=== PATIENT | male | born 1970 | race Caucasian/White ===

== ENCOUNTER 2016-07-30 13:10 | Emergency (ER) | payer MEDICAID, OTHER ==
[~2016-07-30] VITALS: Ht 160 cm; Wt 80.0 kg
[~2016-07-30 13:10] MED LIST: BUSP10TA3; METO25TA6
[2016-07-30 13:55] VITALS: BP 152/91
== END 2016-07-30 16:52 | disposition home or self-care (01) ==
LOC: ER 14:38
DX: J06.9 Acute upper respiratory infection, unspecified (principal); Z88.0 Allergy status to penicillin
CPT/HCPCS: 99283

== ENCOUNTER 2016-09-15 16:12 | Emergency (ER) | payer OTHER ==
[~2016-09-15] VITALS: Ht 167.6 cm; Wt 74.0 kg
[2016-09-15] MEDS ORDERED: KETOROLAC 60MG/2ML VIAL IM ONE (19:30)
[2016-09-15 19:36] VITALS: BP 122/82
== END 2016-09-15 20:01 | disposition home or self-care (01) ==
LOC: ER 18:25
DX: K05.00 Acute gingivitis, plaque induced (principal); Z88.0 Allergy status to penicillin; Z79.899 Other long term (current) drug therapy
CPT/HCPCS: 96372; 99283; J1885

== ENCOUNTER 2017-10-29 18:45 | Emergency (ER) | payer OTHER ==
[~2017-10-29] VITALS: Ht 167.6 cm; Wt 85.1 kg
[2017-10-30 01:06] LABS: CHLORIDE 107 mEq/L (98-107)
[2017-10-30 01:10] LABS: PARTIAL THROMBOPLASTIN TIME 27.3 sec (23.4-31.0); PROTHROMBIN TIME 10.5 sec (9.4-11.6)
[2017-10-30 01:43] LABS: HEMATOCRIT 40.6 % (42.0-52.0); HEMOGLOBIN 14.1 g/dL (14.0-18.0); MEAN CORPUSCULAR HEMOGLOBIN 29.8 pg (28.0-32.0); MEAN CORPUSCULAR VOLUME 85.9 fL (80.0-94.0); PLATELET 212 x1000/uL (130-400); RED BLOOD CELL COUNT 4.72 mill/uL (4.7-6.1); RED CELL DISTRIBUTION WIDTH 13.7 % (11.6-14.6)
[2017-10-30 03:00] VITALS: BP 110/72
== END 2017-10-30 03:35 | disposition home or self-care (01) ==
LOC: ER 21:08
DX: R04.0 Epistaxis (principal); Z88.0 Allergy status to penicillin
CPT/HCPCS: 36415; 80053; 85027; 85610; 85730; 86850; 86900; 99284

== ENCOUNTER 2021-02-02 17:50 | Emergency (ER) | payer MEDICAID, OTHER ==
[~2021-02-02] VITALS: Ht 170.2 cm; Wt 88.0 kg
[2021-02-02] MEDS ORDERED: IBUPROFEN 600MG TABLET PO ONE (21:15)
[2021-02-02] MEDS ORDERED: IBUP-2029 MT (21:46)
[2021-02-02 21:55] VITALS: BP 131/84
== END 2021-02-02 21:58 | disposition home or self-care (01) ==
LOC: ER 17:50
DX: M71.21 Synovial cyst of popliteal space [Baker], right knee (principal); Z88.0 Allergy status to penicillin; Z98.890 Other specified postprocedural states
CPT/HCPCS: 93970; 99284

== ENCOUNTER 2021-06-10 10:52 | Emergency (ER) | payer MEDICAID, OTHER ==
[~2021-06-10] VITALS: Ht 154.9 cm; Wt 91.0 kg
[~2021-06-10 10:52] MED LIST changes: -BUSP10TA3; +IBUP-2029 MT; -METO25TA6
[2021-06-10 10:54] VITALS: BP 171/96
[2021-06-10] MEDS ORDERED: LORAZEPAM 1MG TABLET PO ONE (11:15)
[2021-06-10 12:28] LABS: BASOPHILS % 0.3 % (0.0-2.0); EOSINOPHILS % 0.2 % (0.0-5.0); HEMATOCRIT. 46.2 % (42.0-52.0); HEMOGLOBIN. 15.8 g/dL (14.0-18.0); LYMPHOCYTES % 13.7 % (20.0-50.0); MEAN CORPUSCULAR HEMOGLOBIN 28.8 pg (28.0-32.0); MEAN CORPUSCULAR VOLUME 84.1 fL (80.0-94.0); MEAN PLATELET VOLUME 8.2 fl (7.4-10.4); MONOCYTES % 7.7 % (2.0-8.0); NEUTROPHILS % 78.1 % (40.0-76.0); PLATELET 301 x1000/uL (130-400); RED BLOOD CELL COUNT 5.49 mill/uL (4.7-6.1); RED CELL DISTRIBUTION WIDTH 13.2 % (11.6-14.6)
[2021-06-10 12:35] LABS: CHLORIDE 104 mEq/L (98-107)
[2021-06-10 12:40] LABS: ETHANOL BLOOD < 10 mg/dL
[2021-06-10 12:54] LABS: CLARITY URINE CLEAR (CLEAR); COLOR URINE YELLOW (YELLOW); KETONES URINE NEGATIVE (NEGATIVE); LEUKOCYTE ESTERASE URINE NEGATIVE (NEGATIVE); NITRITE URINE NEGATIVE (NEGATIVE); OCCULT BLOOD URINE NEGATIVE (NEGATIVE); PROTEIN URINE NEGATIVE (NEGATIVE); SPECIFIC GRAVITY URINE 1.004 (1.005-1.030); UROBILINOGEN URINE 0.2 E.U./dL (0.2-1.0)
[2021-06-10 13:01] LABS: *AMPHETAMINES SCREEN URINE PRESUMTIVE POSITIVE (NEGATIVE); *BARBITURATES SCREEN URINE NEGATIVE (NEGATIVE); *BENZODIAZEPINES SCREEN URINE NEGATIVE (NEGATIVE); *COCAINE SCREEN URINE NEGATIVE (NEGATIVE)
[2021-06-10 13:02] LABS: METHADONE URINE SCREEN NEGATIVE (NEGATIVE); OPIATES URINE SCREEN NEGATIVE (NEGATIVE); PHENCYCLIDINE URINE SCREEN NEGATIVE (NEGATIVE)
[2021-06-10 13:04] LABS: CANNABINOID URINE SCREEN NEGATIVE (NEGATIVE)
== END 2021-06-10 16:36 | disposition home or self-care (01) ==
LOC: ER 10:52
DX: R07.89 Other chest pain (principal); F15.10 Other stimulant abuse, uncomplicated; Z90.49 Acquired absence of other specified parts of digestive tract; Z88.0 Allergy status to penicillin
CPT/HCPCS: 36415; 71045; 80053; 80305; 80320; 81003; 83880; 84484; 85025; 93005; 99285; G0480

== ENCOUNTER 2021-06-15 08:55 | Emergency (ER) | payer OTHER ==
[~2021-06-15] VITALS: Ht 167.6 cm; Wt 91.0 kg
[2021-06-15 09:59] LABS: BASOPHILS % 0.6 % (0.0-2.0); EOSINOPHILS % 0.3 % (0.0-5.0); HEMATOCRIT. 42.8 % (42.0-52.0); HEMOGLOBIN. 14.6 g/dL (14.0-18.0); LYMPHOCYTES % 19.4 % (20.0-50.0); MEAN CORPUSCULAR HEMOGLOBIN 28.9 pg (28.0-32.0); MEAN CORPUSCULAR VOLUME 84.8 fL (80.0-94.0); MONOCYTES % 8.2 % (2.0-8.0); NEUTROPHILS % 71.5 % (40.0-76.0); PLATELET 295 x1000/uL (130-400); RED BLOOD CELL COUNT 5.05 mill/uL (4.7-6.1); RED CELL DISTRIBUTION WIDTH 14.1 % (11.6-14.6)
[2021-06-15 10:00] LABS: CLARITY URINE CLEAR (CLEAR); COLOR URINE YELLOW (YELLOW); KETONES URINE NEGATIVE (NEGATIVE); LEUKOCYTE ESTERASE URINE NEGATIVE (NEGATIVE); NITRITE URINE NEGATIVE (NEGATIVE); OCCULT BLOOD URINE NEGATIVE (NEGATIVE); PROTEIN URINE NEGATIVE (NEGATIVE); SPECIFIC GRAVITY URINE 1.003 (1.005-1.030); UROBILINOGEN URINE 0.2 E.U./dL (0.2-1.0)
[2021-06-15 10:04] LABS: CHLORIDE 104 mEq/L (98-107)
[2021-06-15 10:09] LABS: ETHANOL BLOOD < 10 mg/dL
[2021-06-15 11:33] VITALS: BP 116/88
[2021-06-15 12:18] LABS: *BARBITURATES SCREEN URINE NEGATIVE (NEGATIVE); *BENZODIAZEPINES SCREEN URINE NEGATIVE (NEGATIVE); *COCAINE SCREEN URINE NEGATIVE (NEGATIVE); METHADONE URINE SCREEN NEGATIVE (NEGATIVE); OPIATES URINE SCREEN NEGATIVE (NEGATIVE); PHENCYCLIDINE URINE SCREEN NEGATIVE (NEGATIVE)
[2021-06-15 12:19] LABS: CANNABINOID URINE SCREEN NEGATIVE (NEGATIVE)
[2021-06-15 12:20] LABS: *AMPHETAMINES SCREEN URINE NEGATIVE (NEGATIVE)
== END 2021-06-15 12:01 | disposition home or self-care (01) ==
LOC: ER 08:55
DX: R00.0 Tachycardia, unspecified (principal); Z88.0 Allergy status to penicillin; Z98.890 Other specified postprocedural states; Z20.822 Contact with and (suspected) exposure to COVID-19
CPT/HCPCS: 36415; 71045; 80053; 80305; 80320; 81003; 83880; 84484; 85025; 87426; 87804; 93005; 99285; Z7610; G0480

== ENCOUNTER 2021-09-07 11:34 | Emergency (ER) | payer MEDICAID, OTHER ==
[~2021-09-07] VITALS: Ht 165.1 cm; Wt 89.0 kg
[2021-09-07 11:37] VITALS: BP 135/84
[2021-09-07] MEDS ORDERED: IBUPROFEN 600MG TABLET PO ONE (11:45)
[2021-09-07] MEDS ORDERED: ACETAMINOPHEN 325MG TABLET PO ONE (11:45)
== END 2021-09-07 12:54 | disposition home or self-care (01) ==
LOC: ER 11:34
DX: S90.31XA Contusion of right foot, initial encounter (principal); F15.10 Other stimulant abuse, uncomplicated; F17.210 Nicotine dependence, cigarettes, uncomplicated; Z90.49 Acquired absence of other specified parts of digestive tract; Z88.0 Allergy status to penicillin; W22.8XXA Striking against or struck by other objects, initial encounter; Y93.89 Activity, other specified; Y92.89 Other specified places as the place of occurrence of the external cause; Y99.8 Other external cause status
CPT/HCPCS: 73630; 99283

== ENCOUNTER 2022-01-02 13:52 | Emergency (ER) | payer MEDICAID, OTHER ==
[~2022-01-02] VITALS: Ht 162.6 cm; Wt 88.0 kg
[2022-01-02 14:01] VITALS: BP 153/89
[2022-01-02] MEDS ORDERED: IBUPROFEN 600MG TABLET PO STA (15:31)
[2022-01-02] MEDS ORDERED: IBUP-2029 PO (17:23)
[2022-01-02] MEDS ORDERED: HYDR-4001 PO (17:23)
== END 2022-01-02 18:48 | disposition home or self-care (01) ==
LOC: ER 13:52
DX: S62.616A Displaced fracture of proximal phalanx of right little finger, initial encounter for closed fracture (principal); S30.811A Abrasion of abdominal wall, initial encounter; Z90.49 Acquired absence of other specified parts of digestive tract; Z88.0 Allergy status to penicillin; Y04.0XXA Assault by unarmed brawl or fight, initial encounter; Y93.89 Activity, other specified; Y92.89 Other specified places as the place of occurrence of the external cause; Y99.8 Other external cause status
CPT/HCPCS: 29125; 73130; 73140; 99284

== ENCOUNTER 2023-06-07 15:42 | Emergency (ER) | payer OTHER ==
[~2023-06-07] VITALS: Ht 177.8 cm; Wt 124.0 kg
[~2023-06-07 15:42] MED LIST changes: +ASPI-1497 PO; +CYCL7.5T PO; +HYDR-4001 PO; +IBUP-2029 PO; +METO-396 PO; +NAPR500T7 PO; +NITR0.4T49 SL
[2023-06-07 15:49] VITALS: O2SAT 98
[2023-06-07] MEDS ORDERED: ASPIRIN 81MG TABLET PO ONE (16:00)
[2023-06-07] MEDS ORDERED: ONDANSETRON HCL 4MG/2ML INJ IV STA (16:17)
[2023-06-07] MEDS ORDERED: MORPHINE SULFATE 4 MG/ML CPJ (NOT FOR IM USE) IV STA (16:17)
[2023-06-07 16:25] LABS: BASOPHILS % 0.7 % (0.0-2.0); EOSINOPHILS % 1.3 % (0.0-5.0); HEMATOCRIT. 40.7 % (42.0-52.0); MEAN CORPUSCULAR HEMOGLOBIN 29.2 pg (28.0-32.0); MEAN CORPUSCULAR HGB CONC 34.4 g/dL (31.0-37.0); MEAN CORPUSCULAR VOLUME 84.9 fL (80.0-94.0); MEAN PLATELET VOLUME 8.3 fl (7.4-10.4); MONOCYTES % 8.3 % (2.0-8.0); NEUTROPHILS % 71.7 % (40.0-76.0); PLATELET 289 x1000/uL (130-400); RED BLOOD CELL COUNT 4.79 mill/uL (4.7-6.1); RED CELL DISTRIBUTION WIDTH 14.3 % (11.6-14.6); WHITE BLOOD COUNT 7.7 x1000/uL (4.5-11.0)
[2023-06-07 16:39] LABS: D-DIMER 0.71 mg/L FEU (<0.50); PROTHROMBIN TIME 10.8 sec (9.6-11.0)
[2023-06-07 16:40] LABS: ALANINE AMINOTRANSFERASE 77 IU/L (10-49); ASPARTATE AMINOTRANSFERASE 82 IU/L (<34); BILIRUBIN TOTAL 0.7 mg/dL (0.1-1.0); CALCIUM 8.6 mg/dL (8.7-10.4); CARBON DIOXIDE 21 mEq/L (21-32); CHLORIDE 97 mEq/L (98-107); CREATININE 0.9 mg/dL (0.6-1.3); GLUCOSE 105 mg/dL (70-105); POTASSIUM 3.8 mEq/L (3.5-5.1); SODIUM 130 mEq/L (136-145); TROPONIN I HIGH SENSITIVITY 12 ng/L (3.0-53); UREA NITROGEN BLOOD 13 mg/dL (9-23)
[2023-06-07 21:22] LABS: TROPONIN I HIGH SENSITIVITY 11 ng/L (3.0-53)
[2023-06-07 22:13] VITALS: TEMP 98
[2023-06-07] MEDS ORDERED: IOHEXOL-350 100 ML BOTTLE ONE (22:31)
[2023-06-07 23:41] VITALS: BP 106/83; PULSE 82; RESP 16
== END 2023-06-08 00:05 | disposition short-term general hospital (02) ==
LOC: ER 15:42
DX: R55 Syncope and collapse (principal); I10 Essential (primary) hypertension; I25.2 Old myocardial infarction; Z79.899 Other long term (current) drug therapy
CPT/HCPCS: 80053; 83880; 85025; 85379; 85610; 85730; 84484; 36415; 71045; 71275; 93005; 96374; 96375; 99291; Q9967; Z7610 ×3; J2405; J2270

== ENCOUNTER 2024-05-22 18:54 | Emergency (ER) | payer MEDICAID, OTHER ==
[~2024-05-22] VITALS: Ht 162.6 cm; Wt 103.8 kg
[~2024-05-22 18:54] MED LIST changes: +NAPR-1486 PO; -NAPR500T7 PO
[2024-05-22 19:07] VITALS: O2SAT 99
[2024-05-22] MEDS ORDERED: CYCL10TA21 MT (23:14)
[2024-05-22] MEDS ORDERED: NAPR-1176 MT (23:14)
[2024-05-22 23:55] VITALS: BP 128/78; PULSE 74; RESP 16; TEMP 36.61404; O2SAT 99
[2024-05-22] MEDS: CYCLOBENZAPRINE 10MG TABLET PO ONE (23:55)
[2024-05-22] MEDS: IBUPROFEN 600MG TABLET PO ONE (23:55)
== END 2024-05-23 00:05 | disposition home or self-care (01) ==
LOC: ER 18:54
DX: S80.02XA Contusion of left knee, initial encounter (principal); I10 Essential (primary) hypertension; I25.2 Old myocardial infarction; Z90.49 Acquired absence of other specified parts of digestive tract; Z79.899 Other long term (current) drug therapy; Z88.0 Allergy status to penicillin; X58.XXXA Exposure to other specified factors, initial encounter; Y93.89 Activity, other specified; Y92.89 Other specified places as the place of occurrence of the external cause; Y99.8 Other external cause status
CPT/HCPCS: 99283; 73562; L1830

== ENCOUNTER 2024-12-17 21:38 | Emergency (ER) | payer MEDICAID, OTHER ==
[~2024-12-17] VITALS: Ht 162.6 cm; Wt 82.0 kg
[~2024-12-17 21:38] MED LIST changes: +CYCL10TA21 MT; +NAPR-1176 MT
[2024-12-17 21:40] VITALS: O2SAT 100
[2024-12-17 23:10] LABS: BASOPHILS % 0.8 % (0.0-2.0); EOSINOPHILS % 1.0 % (0.0-5.0); HEMATOCRIT. 47.5 % (42.0-52.0); HEMOGLOBIN. 15.7 g/dL (14.0-18.0); LYMPHOCYTES % 24.9 % (20.0-50.0); MEAN PLATELET VOLUME 8.4 fl (7.4-10.4); MONOCYTES % 8.2 % (2.0-8.0); NEUTROPHILS % 65.1 % (40.0-76.0); PLATELET 254 x1000/uL (130-400); RED BLOOD CELL COUNT 5.61 mill/uL (4.7-6.1); RED CELL DISTRIBUTION WIDTH 13.8 % (11.6-14.6)
[2024-12-17 23:23] LABS: CREATININE 1.0 mg/dL (0.6-1.3)
[2024-12-17 23:24] LABS: TROPONIN I HIGH SENSITIVITY 10 ng/L (3.0-53); UREA NITROGEN BLOOD 14 mg/dL (9-23)
[2024-12-17] MEDS: ASPIRIN 325MG TABLET PO ONE (23:25)
[2024-12-18 01:15] LABS: TROPONIN I HIGH SENSITIVITY 10 ng/L (3.0-53)
[2024-12-18 03:00] VITALS: BP 121/67; PULSE 73; RESP 10; TEMP 36.6; O2SAT 94
== END 2024-12-18 04:27 | disposition short-term general hospital (02) ==
LOC: ER 21:38 → CMPBEDREQ 12-18 07:35
DX: R07.89 Other chest pain (principal); I25.2 Old myocardial infarction; I10 Essential (primary) hypertension; Z88.0 Allergy status to penicillin; Z79.899 Other long term (current) drug therapy
CPT/HCPCS: 36415; 71045; 80048; 84484; 85025; 93005; 99285